=== PATIENT | female | born 1980 | race Caucasian/White ===

== ENCOUNTER 2017-02-11 21:40 | Emergency (ER) | payer MEDICAID, OTHER, SELFPAY ==
[~2017-02-11] VITALS: Ht 167.6 cm; Wt 79.5 kg
[2017-02-11 21:41] VITALS: BP 162/95
[2017-02-11] MEDS ORDERED: AMOX500C PO (23:06)
[2017-02-11] MEDS ORDERED: ACET30TAB PO (23:06)
[2017-02-11] MEDS ORDERED: AMOXICILLIN 500 MG CAP PO ONE ×2 (23:15→23:30)
[2017-02-11] MEDS ORDERED: ACETAMINOPH W/CODEINE #3 TAB UD PO ONE (23:15)
== END 2017-02-11 23:38 | disposition home or self-care (01) ==
LOC: M ED 21:40
DX: K04.7 Periapical abscess without sinus (principal)

== ENCOUNTER → 2018-06-30 | Outpatient (REF) | payer OTHER ==
[~2018-06-30] MED LIST: ACET30TAB PO; AMOX500C PO
[2018-06-30 18:05] LABS: BASO # 0.1 10^3/uL (0.0-0.2); BASO % 0.6 % (0.0-1.0); EOS # 0.1 10^3/uL (0.0-0.50); EOS % 0.6 % (0.0-3.0); HEMATOCRIT 39.9 % (36.0-47.0); HEMOGLOBIN 13.1 g/dl (12.0-15.5); LYMPH # 2.1 10^3/uL (1.5-4.5); LYMPH % 18.3 % (24.0-44.0); MEAN CORPUSCULAR HEMOGLOBIN 28.7 pg (27.0-33.0); MEAN CORPUSCULAR HGB CONC 32.8 g/dl (32.0-36.5); MEAN CORPUSCULAR VOLUME 87.3 fl (80.0-96.0); MONO # 0.5 10^3/uL (0.0-0.8); MONO % 4.6 % (0.0-5.0); NEUTROPHILS # 8.5 10^3/uL (1.8-7.7); NEUTROPHILS % 75.6 % (36.0-66.0); PLATELET COUNT, AUTOMATED 542 10^3/uL (150-450); RED BLOOD COUNT 4.57 10^6/uL (4.00-5.40); WHITE BLOOD COUNT 11.2 10^3/uL (4.0-10.0)
[2018-06-30 18:21] LABS: ALBUMIN 3.7 GM/DL (3.2-5.2); ALT/SGPT 14 U/L (12-78); BILIRUBIN,TOTAL 0.2 MG/DL (0.2-1.0); BLOOD UREA NITROGEN 8 MG/DL (7-18); CARBON DIOXIDE LEVEL 28 MEQ/L (21-32); CHLORIDE LEVEL 106 MEQ/L (98-107); CHOLESTEROL LEVEL 181 MG/DL (<200); CREATININE FOR GFR 0.72 MG/DL (0.55-1.30); GLOMERULAR FILTRATION RATE > 60.0 (>58); GLUCOSE, FASTING 83 MG/DL (70-100); HDL CHOLESTEROL 52 MG/DL (>40); LDL CHOLESTEROL 115 MG/DL (<100); NON-HDL-C 129 MG/DL; POTASSIUM SERUM 4.2 MEQ/L (3.5-5.1); SODIUM LEVEL 140 MEQ/L (136-145); TOTAL PROTEIN 7.5 GM/DL (6.4-8.2); TRIGLYCERIDES LEVEL 72 MG/DL (<150)
[2018-06-30 19:16] LABS: HEMOGLOBIN A1c 5.3 %
[2018-06-30 21:27] LABS: TOTAL 25(OH) VITAMIN D 20.5 NG/ML (30.0-100.0)
== END ==
LOC: M LAB REF 16:52
PROVIDERS: ATTEND Nurse Practitioner Family
DX: Z13.9 Encounter for screening, unspecified (principal)

== ENCOUNTER 2018-08-10 17:02 | Emergency (ER) | payer OTHER ==
[~2018-08-10] VITALS: Ht 167.6 cm; Wt 79.5 kg
[~2018-08-10 17:02] MED LIST changes: -AUGM875T28 PO; -KETO10TAB PO; -LIDO1SOL7 SSP
[2018-08-10] MEDS ORDERED: LIDO1SOL7 SSP (18:48)
[2018-08-10] MEDS ORDERED: AUGM875T28 PO (18:48)
[2018-08-10] MEDS ORDERED: KETO10TAB PO (18:48)
[2018-08-10 19:00] VITALS: BP 147/83
[2018-08-10] MEDS ORDERED: AUGMENTIN 875 MG TAB PO ONE (19:00)
[2018-08-10] MEDS ORDERED: KETOROLAC TROMETHAMINE 10 MG TAB PO ONE (19:00)
[2018-08-10] MEDS ORDERED: LIDOCAINE VISCOUS 2% SOLN 15ML UDC SSP ONE (19:00)
== END 2018-08-10 19:01 | disposition home or self-care (01) ==
LOC: M ED 17:02
DX: K04.7 Periapical abscess without sinus (principal)

== ENCOUNTER → 2018-08-10 | Outpatient (CLI) | payer OTHER ==
[~2018-08-10] MED LIST changes: +AUGM875T28 PO; +KETO10TAB PO; +LIDO1SOL7 SSP
--- NOTE | 2018-08-10 12:03 | REP ---
Clinical: Cervicalgia Technique: AP, lateral, flexion/extension, swimmer's, bilateral oblique, and open-mouth views of the cervical spine. Findings: Alignment is maintained. Early advanced multilevel degenerative changes include endplate sclerosis/heterogeneity with marginal spurring and disc space narrowing primarily involving C4-5 through C6-7. Open mouth view demonstrates normal C1-C2 articulation and odontoid process. Oblique views demonstrate patent neural foramen. Impression: Early advanced multilevel degenerative spondylosis. Electronically Signed by Keny Courtney MD 08/10/2018 11:54 A
== END ==
LOC: M ADAMS 11:02
PROVIDERS: ATTEND Physician Assistant Medical
DX: M54.2 Cervicalgia (principal)

== ENCOUNTER → 2024-02-28 | Outpatient (CLI) | payer MEDICAID ==
[~2024-02-28] MED LIST changes: +ACET-716 PO; -ACET30TAB PO; +AUGM875T28 PO; +KETO10TAB PO; +LIDO15SO8 SSP
== END ==
LOC: M OUTALCOH 07:48
PROVIDERS: ATTEND Psychiatry & Neurology Psychiatry
DX: F10.20 Alcohol dependence, uncomplicated (principal); F12.20 Cannabis dependence, uncomplicated; F17.200 Nicotine dependence, unspecified, uncomplicated

== ENCOUNTER 2024-03-08 08:40 | Outpatient (RCR) | payer MEDICAID | END 2024-03-13 | LOC: M OUTALCOH 08:40 | PROVIDERS: ATTEND Psychiatry & Neurology Psychiatry | DX: F10.20 Alcohol dependence, uncomplicated (principal); F12.20 Cannabis dependence, uncomplicated; F17.200 Nicotine dependence, unspecified, uncomplicated ==

== ENCOUNTER 2024-04-05 08:40 | Outpatient (RCR) | payer MEDICAID | END 2024-04-13 | LOC: M OUTALCOH 08:40 | PROVIDERS: ATTEND Psychiatry & Neurology Psychiatry | DX: F10.20 Alcohol dependence, uncomplicated (principal); F12.20 Cannabis dependence, uncomplicated; F17.200 Nicotine dependence, unspecified, uncomplicated ==